=== PATIENT | female | born 1995 | race Hispanic/Latino ===

== ENCOUNTER 2021-06-09 08:21 | Emergency (ER) | payer SELFPAY ==
[2021-06-09] VITALS (13 sets, daily range): BP systolic 113–132; BP diastolic 53–85; PULSE 92–108; RESP 20–37; TEMP 36.9–38.4; O2SAT 97–100
--- NOTE | ~2021-06-09 | XR_ITS ---
EXAMINATION: XR chest 1V portable DATE: 06/09/2021 09:20 INDICATION: Cough and fever. Body aches. Vomiting. TECHNIQUE: A single frontal view of the chest was obtained. COMPARISON: None. FINDINGS: The chest demonstrates clear lungs without pneumonia, pleural effusion, or pneumothorax. Th e heart size is normal. IMPRESSION: 1. No acute cardiopulmonary disease. Reviewed, dictated and finalized at location A.
[2021-06-09] MEDS: IBUPROFEN 600 MG TABLET PO (10:15)
--- NOTE | 2021-06-09 10:35 | ED.GENADULT ---
HPI - General Adult General Chief complaint: Upper Respiratory Infection Stated complaint: sob Time Seen by Provider: 06/09/21 08:48 Source: patient Mode of arrival: ambulatory Limitations: no limitations History of Present Illness HPI narrative: Patient presents with chief complaint of fever, chills, body aches, dry cough over the past 3 days. Patient received her Covid vaccination earlier this year. She does not remember the date or month. Patient states she has not had known Covid exposure. Patient states that she last took Tylenol at 4 AM but has not taken any NSAIDs. Patient reports she has been able to tolerate food and fluids p.o. Patient denies any chest pain, shortness of breath, nausea, vomiting, diarrhea or any other symptoms. She denies history of asthma or COPD. Patient denies any chance of due to abstinence. Related Data Allergies Allergy/AdvReac Type Severity Reaction Status Date / Time No Known Allergies Allergy Mild Verified 06/09/21 08:50 Review of Systems Review of Systems: CONSTITUTIONAL: Reports fever and body aches EYES: Denies visual changes, redness, or discharge. ENT: Denies rhinorrhea, congestion, sore throat, or otalgia. CARDIOVASCULAR: Denies chest pain, palpitations, or edema. RESPIRATORY: Reports cough denies dyspnea. GASTROINTESTINAL: Denies abdominal pain, nausea, vomiting, or diarrhea. GENITOURINARY: Denies dysuria or hematuria. SKIN: Denies rash or itching. MUSCULOSKELETAL: Denies back pain, joint pain, or myalgia. NEUROLOGIC: Denies headache, numbness, dizziness, or weakness. PSYCHIATRIC: Denies anxiety or depression. Exam Narrative: GENERAL: Well-appearing, well-nourished, and in no acute distress. Nontoxic in appearance. HEAD: Normocephalic, atraumatic. EYES: PERRLA and EOMI. ENT: Nares clear, no rhinorrhea or epistaxis. Mucous membranes moist. Oropharynx without tonsillar hypertrophy exudate or other lesions. Bilateral TMs pearly guaman nonbulging CHEST: Clear to auscultation. No respiratory distress. No wheezes rales or rhonchi HEART: Regular rate and rhythm. No murmur heard. Normal peripheral pulses. EXTREMITIES: Normal range of motion. No edema. SKIN: Warm, dry, no rash. NEURO: No focal deficits. Alert and oriented x3. PSYCH: Normal mood and affect. Course Vital Signs Vital signs: Vital Signs Temperature 101.1 F H 06/09/21 08:48 Pulse Rate 105 H 06/09/21 08:48 Respiratory Rate 20 06/09/21 08:48 Blood Pressure 122/53 L 06/09/21 08:48 Pulse Oximetry 99 06/09/21 08:48 Temperature 98.5 F 06/09/21 11:44 Pulse Rate 92 06/09/21 11:01 Respiratory Rate 33 H 06/09/21 11:01 Blood Pressure 132/74 06/09/21 11:01 Pulse Oximetry 98 06/09/21 11:01 Medical Decision Making MDM Narrative Medical decision making narrative: Patient is able to tolerate p.o. fluids. Patient has been given ibuprofen in the emergency department. She denies any chance of or need for testing. Patient now discloses that 2 weeks ago she was treated for urinary tract infection. Patient reports that her symptoms had improved after taking antibiotics. Will obtain a urine analysis to make sure patient does not have signs of continued urinary tract infection. Patient urinalysis shows urinary tract infection. Patient's fever and heart rate have improved with ibuprofen. Patient has been taking Keflex for urinary tract infection. She states that her symptoms have subsided she denies any flank pain. Patient is able to tolerate p.o. fluids and food. Patient does not have weakness. Patient states that she feels comfortable being discharged home and does not feel the need for admission. Patient was previously on Keflex but now will be placed on Bactrim. Patient has also been tested for Covid due to her fevers and cough. Patient directed to return to emergency department if she has any worsening emergent symptoms. Vital Signs Vital Signs: Vital Signs Temper
[2021-06-09 11:48] LABS: Add Urine Microscopic? YES; Appearance Urine Cloudy (Clear); Bacteria Urine 1+ /hpf; Bilirubin Urine Negative (Negative); Blood Urine 3+ (Negative); Color Urine Amber (Yellow); Glucose Urine UA Negative (Negative); Ketones Urine Negative (Negative); Leukocyte Esterase Ur 2+ LEU/UL (Negative); Mucus Urine Heavy /lpf; Nitrate Urine Negative (Negative); Protein Urine 3+ mg/dL (Negative); RBC Urine 51-75 /hpf (0-2); Specific Grav Ur 1.014 (1.001-1.035); Squamous Epithelial Cell Urine Many /hpf (Few); Urobilinogen Urine Negative mg/dL (<2.0); WBC Urine >75 /hpf
[2021-06-09 17:37] LABS: SARS-CoV-2 RNA PCR Negative
== END 2021-06-09 12:52 | disposition home or self-care (01) ==
PROVIDERS: Physician Assistant; Emergency Provider Family Medicine
DX: B34.9 Viral infection, unspecified (principal); N30.01 Acute cystitis with hematuria; Z20.822 Contact with and (suspected) exposure to COVID-19
CPT/HCPCS: 71045; 81001; 87077; 87086; 87088; 87186; 87804; 99283; A9270; C9803; U0003; U0005

== ENCOUNTER 2021-06-21 19:22 | Emergency (ER) | payer SELFPAY ==
--- NOTE | ~2021-06-21 | XR_ITS ---
EXAMINATION: XR chest 2V DATE: 06/21/2021 20:08 INDICATION: Fever and shortness of breath TECHNIQUE: PA and lateral views of the chest are obtained. COMPARISON: 06/09/2021 FINDINGS: There are patchy opacities of the mid and lower lung zones. There is no pleural effusion or pneumothorax. The cardiomediastinal silhouette is normal. The visualized bones and soft tissues are unremarkable. IMPRESSION: 1. Patchy opacities of the mid and lower lung zones, likely pneumonia. Reviewed, dictated and finalized at location A.
[2021-06-21 19:23] VITALS: BP 168/77; PULSE 129; RESP 18; TEMP 38.2; O2SAT 100
--- NOTE | 2021-06-21 19:28 | ECG_ITS ---
Measurements Intervals [place] Rate: 116 P: 42 PA: 138 QRS: 6 QRSD: 105 T: 18 QT: 302 QTc: 421 Interpretive Statements SINUS TACHYCARDIA VOLTAGE CRITERIA FOR LVH BORDERLINE T WAVE ABNORMALITY- ANTEROLAT/INF LEADS ABNORMAL ECG Electronically Signed On 06-21-2021 20:13:34 CDT by Eugenio Ramírez D.O.
[2021-06-21 19:54] VITALS: BP 140/72; PULSE 118; RESP 15; O2SAT 100
[2021-06-21 20:00] LABS: Basophils Percent Auto 0.3 % (0.2-1.2); Eosinophils Percent Auto 0.2 % (0-4.4); Hematocrit 30.7 % (37.0-47.0); Immature Granulocyte Absolute 0.06 K/mm3 (0.00-0.031); Immature Granulocyte Percent A 0.5 % (0-0.5); Lymphocytes Absolute Auto 0.88 K/mm3 (0.9-3.2); Lymphocytes Percent Auto 6.8 % (18.3-44.2); Mean Corpuscular HGB Conc 32.6 g/dl (32-36); Mean Corpuscular Hemoglobin 28.4 pg (26-34); Mean Corpuscular Volume 87.2 fl (80-100); Mean Platelet Volume 8.8 fl (7.4-10.4); Monocytes Absolute Auto 0.6 K/mm3 (0.1-0.6); Monocytes Percent Auto 4.3 % (2.6-8.5); Neutrophils Absolute Auto 11.3 K/mm3 (1.3-6.7); Neutrophils Percent Auto 87.9 % (45.5-73.1); Platelet Count Result 367 k/mm3 (150-375); Red Blood Count 3.52 M/mm3 (4.2-5.4); Red Cell Distribution Width 14.2 % (11.5-14.5); White Blood Count 12.9 K/mm3 (4.5-10.0)
[2021-06-21 20:02] LABS: Alanine Aminotransferase 27 U/L (4-35); Albumin Level 4.2 g/dL (3.5-5.1); Alkaline Phosphatase 83 U/L (38-126); Anion Gap 10 mmol/L (8-16); Aspartate Amino Transferase 25 U/L (14-36); Bilirubin,Total 0.6 mg/dL (0.2-1.3); Blood Urea Nitrogen 15 mg/dL (7-17); Calcium 9.4 mg/dL (8.4-10.2); Carbon Dioxide 24 mmol/L (22-30); Chloride 99 mmol/L (98-107); Estimated CRCL calculation 90 ml/min; Estimated Glomerular Filt Rate > 60; Glucose 117 mg/dL (65-110); Potassium 4.4 mmol/L (3.4-5.0); Sodium 133 mmol/L (137-145)
--- NOTE | 2021-06-21 20:04 | ED.GENADULT ---
HPI - General Adult General Chief complaint: Dizziness Stated complaint: dizziness, shaky Time Seen by Provider: 06/21/21 19:52 Source: patient History of Present Illness HPI narrative: Patient is a 25 y/o female complaining of severe cough and SOB for 1 month. She states that her cough is mostly dry cough with no sputum production. There is no alleviating or exacerbating factor. She attempted OTC cough meds which did not help. She also has fever and right side pain. She was recently seen at outside hospital and diagnosed with UTI. She was also tested for COVID and told that her test was negative. She also feels dizzy and weak. Related Data Allergies Allergy/AdvReac Type Severity Reaction Status Date / Time No Known Allergies Allergy Mild Verified 06/21/21 19:26 Review of Systems Constitutional: Constitutional: Reports chills, Reports fever(s), Denies headache(s) and Reports weakness Eyes: Eyes: Denies blurry vision ENT: Denies headache(s) and Denies neck pain Cardiovascular: Cardiovascular: Denies chest pain and Denies dyspnea Respiratory: Respiratory: Denies cough and Denies dyspnea Gastrointestinal: Gastrointestinal: Denies abdominal pain, Denies diarrhea, Denies nausea and Denies vomiting Genitourinary: Genitourinary: Denies hematuria and Denies dysuria Musculoskeletal: Musculoskeletal: Reports back pain and Denies neck pain Neurologic: Denies headache(s) and Denies weakness Exam Const: General: no acute distress and well developed Orientation/consciousness: oriented to person, oriented to place, oriented to time and patient oriented x3 HENMT: Head: normocephalic Ears: external ears normal General nose exam: Normal external nose present Eyes: General: appearance normal, both eyes and all related structures Conjunctivae: conjunctivae normal Neck: Neck: normal visual inspection and full ROM Chest: Chest palpation & inspection: normal inspection of the chest and no tenderness Resp: Effort & Inspection: normal respiratory effort Auscultation: clear to auscultation bilaterally Cardio: Rate: tachycardic Rhythm: regular rhythm GI: GI Palp: No abdominal tenderness and Yes Soft to palpation Skin: General skin exam: normal color and turgor normal Neuro: General: oriented to person, oriented to place, oriented to time and patient oriented x3 Cognition (Neuro): normal cognition Extrem: General: normal to inspection, full ROM and no pedal edema Psych: Appearance: grossly normal Mental Status: mental status grossly normal Affect: normal affect Course Reevaluation(s) Reevaluation #1: Rechecked. Discussed with patient about test results. Offered possible admission. Patient declined and wanted to go home. Date: 06/22/21 Time: 00:01 Vital Signs Vital signs: Vital Signs Temperature 38.2 C H 06/21/21 19:23 Pulse Rate 129 H 06/21/21 19:23 Respiratory Rate 18 06/21/21 19:23 Blood Pressure 168/77 H 06/21/21 19:23 Pulse Oximetry 100 06/21/21 19:23 Temperature 38.2 C H 06/21/21 19:23 Pulse Rate 110 H 06/22/21 00:49 Respiratory Rate 25 H 06/22/21 00:49 Blood Pressure 135/72 06/22/21 00:49 Pulse Oximetry 95 06/22/21 00:49 Medical Decision Making Vital Signs Vital Signs: Vital Signs Temperature 38.2 C H 06/21/21 19:23 Pulse Rate 129 H 06/21/21 19:23 Respiratory Rate 18 06/21/21 19:23 Blood Pressure 168/77 H 06/21/21 19:23 Pulse Oximetry 100 06/21/21 19:23 Temperature 38.2 C H 06/21/21 19:23 Pulse Rate 110 H 06/22/21 00:49 Respiratory Rate 25 H 06/22/21 00:49 Blood Pressure 135/72 06/22/21 00:49 Pulse Oximetry 95 06/22/21 00:49 Lab Data Result diagrams: 06/21/21 19:45 06/21/21 19:45 Labs: Lab Results 06/21/21 06/21/21 06/21/21 Range/Units 19:45 19:45 19:53 WBC 12.9 H (4.5-10.0) K/mm3 RBC 3.52 L (4.2-5.4) M/mm3 Hgb 10.0 L (12.0-15.0) g/dL Hct 30.7 L (37.0-47.0) % MCV 87.2 (80-100
[2021-06-21 20:14] LABS: Add Urine Microscopic? YES; Appearance Urine Cloudy (Clear); Bilirubin Urine Negative (Negative); Blood Urine Negative (Negative); Color Urine Yellow (Yellow); Glucose Urine UA Negative (Negative); Ketones Urine Negative (Negative); Leukocyte Esterase Ur Negative LEU/UL (Negative); Mucus Urine Rare /lpf; Nitrate Urine Negative (Negative); Protein Urine 2+ mg/dL (Negative); RBC Urine 0-2 /hpf (0-2); Specific Grav Ur 1.013 (1.001-1.035); Squamous Epithelial Cell Urine Rare /hpf (Few); Urobilinogen Urine Negative mg/dL (<2.0); WBC Urine 0-3 /hpf
[2021-06-21 20:39] LABS: Lactic Acid Reflex 0.7 mmol/L (0.7-2.1)
[2021-06-21 21:48] VITALS: BP 126/68; PULSE 105; RESP 23; O2SAT 98
[2021-06-21] MEDS: SODIUM CHLORIDE 0.9% IV 1,000 ML 999 ML IV CONT (21:49)
[2021-06-21 22:47] VITALS: BP 136/69; PULSE 106; RESP 12; O2SAT 99
[2021-06-22 00:49] VITALS: BP 135/72; PULSE 110; RESP 25; O2SAT 95
[2021-06-22 19:26] LABS: SARS-CoV-2 RNA PCR Negative
== END 2021-06-22 00:15 | disposition home or self-care (01) ==
PROVIDERS: Emergency Medicine; Emergency Provider Emergency Medicine
DX: J18.9 Pneumonia, unspecified organism (principal); Z20.822 Contact with and (suspected) exposure to COVID-19; R00.0 Tachycardia, unspecified; R94.31 Abnormal electrocardiogram [ECG] [EKG]
CPT/HCPCS: 36415; 71046; 80053; 81001; 83605; 85025; 87040; 93005; 96360; 96361; 99283; C9803; J7030; U0003; U0005